=== PATIENT | female | born 1950 | race Caucasian/White ===

== ENCOUNTER 2016-04-04 05:42 | Day surgery (SDC) | payer MEDICARE, OTHER ==
[2016-04-03 11:28] VITALS: Ht 157.5 cm; Wt 86.0 kg
--- NOTE | 2016-04-03 13:28 | PREOPHP ---
DATE OF ADMISSION: 11/02/2015 HISTORY OF PRESENT ILLNESS: This 65-year-old patient is admitted for elective cataract surgery of t he left eye. The patient has had decreased vision for the past 6 10 months, and 6 months ago underw ent cataract surgery of the right eye with good visual result. The patient is currently being admit flynn for cataract surgery of the left eye. The patient has a history of insulin-dependent diabetes m ellitus for the past 22 years, hypercholesterolemia, and rheumatoid arthritis. CURRENT MEDICATIONS: 1. Gabapentin. 2. Methotrexate. 3. NovoLog insulin. 4. Atorvastatin. 5. Ranitidine. ALLERGIES: THERE ARE NO KNOWN ALLERGIES. PHYSICAL EXAMINATION: The visual acuity best corrected is 20/30 in the right eye and 20/50 in the l eft eye. Slit lamp examination reveals a nuclear sclerotic cataract in the left eye. Applanation t onometry is 15 mmHg. Examination of the retina appears within normal limits, without evidence of di abetic retinopathy. DIAGNOSIS: Cataract, left eye. PLAN: Cataract extraction with lens implant, left eye. The risks and alternatives to the surgery h ave been discussed with the patient, and patient has opted to proceed with surgery. Dictated By: MARLON CARDONA/SHANKAR Conf#: [id number] DID#: [id number]
[2016-04-04] VITALS (10 sets, daily range): BP systolic 112–134; BP diastolic 62–78; PULSE 87–94; RESP 14–20
[~2016-04-04] VITALS: Ht 157.5 cm; Wt 86.0 kg
[~2016-04-04 05:42] MED LIST: ACET1TAB40 PO; ATOR40TA68 PO; BENA40TA54 PO; BUPR150T6 PO; BUPR75TA9 PO; DOXY100T20 PO; FOLI-49 PO; GABA400C14 PO; LEVEM SC; METH2.5T21 PO; NEOM28OI TP; NOVO3I SC; PARO40TA79 PO; RANI300T PO; VITAMIN D PO; ZOLP10TA5 PO
[2016-04-04] MEDS ORDERED: BENA20TA48 PO (07:42)
[2016-04-04] MEDS ORDERED: NOVO3I SC (07:45)
[2016-04-04] MEDS ORDERED: DEXTROSE 50% 50 ML SYRINGE ONE (07:47)
[2016-04-04] MEDS ORDERED: CHOL100062 PO (07:48)
[2016-04-04] MEDS ORDERED: TOCI400V IV (07:48)
[2016-04-04] MEDS ORDERED: MULT-853 PO (07:49)
[2016-04-04] MEDS ORDERED: PANT40TA4 PO (07:49)
[2016-04-04] MEDS ORDERED: INSU100I31 SQ (07:51)
[2016-04-04] MEDS ORDERED: DEXTROSE 50% 50 ML SYRINGE IV PRN (08:00)
[2016-04-04] MEDS ORDERED: CIPROFLOXACIN 0.3% 2.5 ML OPH OPER SCH (08:00)
[2016-04-04] MEDS ORDERED: CYCLOPENTOLATE/PHENYLEPH 2 ML OPH OPER SCH (08:00)
[2016-04-04] MEDS ORDERED: DEXTROSE 50% 50 ML SYRINGE IV ONE (08:00)
[2016-04-04] MEDS ORDERED: DICLOFENAC 0.1% 2.5 ML OPH OPER SCH (08:00)
[2016-04-04] MEDS ORDERED: TROPICAMIDE 1% 2 ML OPH OPER SCH (08:00)
[2016-04-04] MEDS ORDERED: HYALURONATE/CHONDROITIN 1ML OPH INJ ONE (09:52)
[2016-04-04] MEDS ORDERED: CARBACHOL 0.01% 1.5 ML OPH INJ ONE (09:52)
[2016-04-04] MEDS ORDERED: LIDOCAINE 4% (MPF) 5 ML INJ ONE (09:52)
[2016-04-04] MEDS ORDERED: DEXAMETHASONE 4 MG/ML 1 ML INJ ONE (09:52)
[2016-04-04] MEDS ORDERED: PROPOFOL 20 ML ONE (09:56)
[2016-04-04] MEDS ORDERED: LABETALOL HCL 20MG INJ IV PRN (10:30)
[2016-04-04] MEDS ORDERED: MEPERIDINE 25 MG INJ IV PRN (10:30)
[2016-04-04] MEDS ORDERED: HYDROmorphONE (0.2 MG/ML) 10ML SYG IV PRN ×3 (10:30)
[2016-04-04] MEDS ORDERED: ONDANSETRON 4 MG INJ IV PRN (10:30)
[2016-04-04] MEDS ORDERED: hydrALAzine 20 MG INJ IV PRN (10:30)
[2016-04-04] MEDS ORDERED: FENTAnyl 50 MCG/ML VIAL IV PRN ×2 (10:30)
[2016-04-04] MEDS ORDERED: CEFAZOLIN 1 GM INJ INJ ONE (11:10)
--- NOTE | 2016-04-04 11:43 | OPR ---
DATE OF OPERATION: 04/04/2016 PREOPERATIVE DIAGNOSIS: Cataract, left eye. POSTOPERATIVE DIAGNOSIS: Cataract, left eye. OPERATION PERFORMED: Cataract extraction with lens implant, left eye. SURGEON: Marlon Ruelas MD ANESTHESIA: Delbert Baker MD OPERATION: Phacoemulsification with posterior chamber intraocular lens implant, left eye. PROCEDURE: The patient was brought to the operating room and placed on the table with an IV in plac e and the patient attached to an monitor worker. Oxygen was given via face mask. After some intravenous sedation was administered, local anesthesia was given using Xylocaine 2% with epinephrine, mixed with Marcaine 0.5%. This was given in a lid block and retrobulbar injection. The patient was then prepped and draped in the usual sterile manner. A wire lid speculum was inserted between the lids of the left eye. A Superblade was used to enter th e anterior chamber at the corneoscleral limbus at the 10:30 o'clock position. A separate incision wa s made using a 3.0-mm keratome which entered the corneoscleral junction at the 12 o'clock position. Through this 3-mm opening, an irrigating cystitome was introduced into the anterior chamber. The donavan mber was filled with Viscoat and an anterior capsulotomy was performed. Balanced salt solution was t hen used for hydrodissection of the lens. A phacoemulsification handpiece was then brought into the field and introduced into the anterior chamber. The lens nucleus was emulsified using a deep groove and cracking the nucleus into quadrants. Following this, each quadrant was aspirated and emulsified at the pupillary margin. After this was completed, the irrigation/aspiration handpiece was brought to the field, introduced i nto the posterior chamber, and the lens cortical material was removed. When this was completed, cathy tional Viscoat was injected into the anterior and posterior chambers. The 3-mm opening had its internal lips enlarged, and then the posterior chamber intraocular lens italo suring 20.0 diopters ([employer], Model LI61AO) was then injected into the posterio r chamber using the lens injector system. After the leading haptic was introduced into the capsular bag and the lens optic was present in the center of the eye, the injector was removed and the traili ng haptic was grasped with non-toothed forceps and introduced into the capsular fold superiorly. A S inskey hook was then used to rotate the intraocular lens so that the lips were oriented in the horiz ontal meridian. One 10-0 nylon suture was placed across the wound. Prior to tying, the irrigation/aspiration handpiece was reintroduced into the anterior chamber to re move the Viscoat. Miochol was instilled to constrict the pupil, and then the 10-0 nylon suture was t ied. The ends were cut short and then the knot was buried. Then, 0.5 mL of dexamethasone and 0.5 mL of Ancef were injected into the sub-Tenon space in the infe rior fornix. Ciloxan drops were then placed on the surface of the eye. The speculum was removed and a patch was applied. The patient then left the operating room in satisfactory condition. Dictated By: MARLON CARDONA/SHANKAR Conf#: [id number] DID#: [id number]
== END 2016-04-04 11:49 | disposition home or self-care (01) ==
LOC: SDS 05:42
PROVIDERS: ATTEND Ophthalmology
DX: H25.12 Age-related nuclear cataract, left eye (principal); I10 Essential (primary) hypertension; E11.9 Type 2 diabetes mellitus without complications; E78.5 Hyperlipidemia, unspecified
CPT/HCPCS: 66984; 82962; J0690; J1100; V2632

== ENCOUNTER → 2016-07-19 | Outpatient (CLI) | payer MEDICARE, OTHER ==
[~2016-07-19] MED LIST changes: -ACET1TAB40 PO; +APRACLONIDINE 1% 0.1 ML OPH ONE; +BENA20TA48 PO; -BENA40TA54 PO; -BUPR150T6 PO; +CHOL100062 PO; -DOXY100T20 PO; +INSU100I31 SQ; -LEVEM SC; +MULT-853 PO; -NEOM28OI TP; +OPHTHALMIC IRRIG SOLUTION 120 ML ONE; +PANT40TA4 PO; +PHENYLephrine 10% 5 ML OPH ONE; +PROPARACAINE 0.5% 15 ML OPH ONE; -RANI300T PO; +TOCI400V IV; +TROPICAMIDE 1% 3 ML OPH ONE; -VITAMIN D PO
== END | disposition home or self-care (01) ==
LOC: RAD 08:50
PROVIDERS: ATTEND Ophthalmology
DX: H26.492 Other secondary cataract, left eye (principal)
CPT/HCPCS: 66821

== ENCOUNTER → 2017-01-09 | Outpatient (CLI) | payer MEDICARE, OTHER ==
[~2017-01-09] MED LIST changes: -APRACLONIDINE 1% 0.1 ML OPH ONE; -OPHTHALMIC IRRIG SOLUTION 120 ML ONE; -PHENYLephrine 10% 5 ML OPH ONE; -PROPARACAINE 0.5% 15 ML OPH ONE; -TROPICAMIDE 1% 3 ML OPH ONE
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
--- NOTE | 2017-01-10 13:03 | RADRPT ---
PROCEDURE: Right knee radiographs. CLINICAL INDICATION: Right knee pain. TECHNIQUE: Three views. Weight bearing. Frontal, lateral, and patellar view. COMPARISON: No prior studies are available for comparison. FINDINGS: There is no fracture or dislocation. The soft tissues are normal. There are degenerative changes with osteophytes arising from all 3 joint compartment margins. There is medial and patellofemoral joint compartment narrowing. There is deformity of the patellofemoral j oint compartment. There is no lytic or blastic lesion. There is no radiopaque foreign body. IMPRESSION: 1. Moderate to severe degenerative changes of the right knee. 2. No acute abnormality. RPTAT: QQ .Laron Buchanan MD, MD Date Time Electronically viewed and signed by .Laron Buchanan MD, on 01/10/2017 13:03 .R/
== END | disposition home or self-care (01) ==
LOC: HKI 10:13
DX: M06.861 Other specified rheumatoid arthritis, right knee (principal); M17.11 Unilateral primary osteoarthritis, right knee; E11.9 Type 2 diabetes mellitus without complications; Z79.4 Long term (current) use of insulin; Z96.652 Presence of left artificial knee joint; I83.90 Asymptomatic varicose veins of unspecified lower extremity; Z87.11 Personal history of peptic ulcer disease
CPT/HCPCS: 20610; 73562; G0463

== ENCOUNTER → 2018-03-21 | Outpatient (CLI) | END | disposition home or self-care (01) ==

== ENCOUNTER → 2018-04-08 | Outpatient (CLI) | payer MEDICARE, OTHER ==
[~2018-04-08] MED LIST changes: +BENA20TA4 PO; -BENA20TA48 PO
--- NOTE | 2018-04-08 18:11 | CONS ---
Date/Time of Note Date/Time of Note DATE: 04/08/18 TIME: 18:01 Consult Date/Type/Reason Admit Date/Time Initial Consult Date Subjective This is a 67-year-old female who follows up today regarding her right knee. Last visit surgical treatment with a right total knee arthroplasty was discussed at length. The patient wanted to proceed with surgery at that time. Given her medical history of rheumatoid arthritis as well as type 1 diabetes I wanted to talk with the patient's powerhouse helper Dr. Pinedo and obtain labs from the patient's PCP Dr. Villagran. The patient is currently being transitioned onto a new medication, Infliximab, for her rheumatoid arthritis. Her infusion schedule will be stable in May. Patient denies any changes in her symptoms. The pain is significant and limits her daily life. She does not want to continue nonoperative treatment. Objective Weight: 90 pound Height: 5 foot 2 inches Temperature: 98.4 Heart Rate: 101 Blood Pressure: 129/73 Respiratory Rate: 12 Exam General: Alert, oriented x3. No Acute Distress. Heart: Regular rate and rhythm. Lungs: No respiratory distress. No accessory muscle use. Musculoskeletal: Right Knee This is a well developed obese female who is alert, oriented times three and in no apparent distress. Skin is intact over the right knee as well as the lower extremity with no abrasions, lacerations, or ulcerations. There is significant redundant soft tissue over the knee. Observation of the patient's gait reveals an antalgic gait with Varus thrust. Frontal plane alignment is varus. There is pain on palpation of medial joint line. The patient demonstrates grinding anteriorly with ROM. Range of motion: 5 extension to approximately 120 degrees of flexion. Collateral ligament testing reveals no instability with varus or valgus stress at 0 and 30 degrees of flexion. Negative Loyda's and negative posterior drawer. Neurovascularly intact with 5/5 EHL/tibialis anterior/gastroc. Sensation intact to light touch in a sural, saphenous, deep peroneal, superficial peroneal, medial and lateral plantar nerve distribution. Palpable, symmetric dorsalis pedis and posterior tibial pulses in both lower extremities. Hip examination normal. Results/Medications Results [address] Pinedo 04/02/18 WBC: 6.1 Hemoglobin: 12.3 ESR: 33 (0-20) CRP: 0.25 (0-1.10) Labs from Dr. Villagran 04/01/18 HgbA1c: 9.3 Total protein: 7.0 Abdomen: 4.0 Assessment/Plan Chief Complaint/Hosp Course This is a 67-year-old female with end-stage rheumatoid arthritis to her right knee. She has failed conservative treatment. Her preoperative workup revealed that her HgbA1c is significantly elevated at 9.3. Per the patient she does have hypoglycemic episodes. Ideally her HgbA1c would be below 7.0. I will talk with Dr. Villagran. If her hemoglobin A1c could not be lowered secondary to hypoglycemic episodes then we may proceed with surgery with the patient understanding her increased risk for perioperative complications including infection. In addition secondary to her being transitioned onto a new antirheumatic medication at the very least she would have to wait until mid May when her infusion schedule regular and we can appropriately schedule her surgery. In addition I would like to order a vitamin D level for her. NAIMA SARGENT MD Apr 08, 2018 18:11
== END | disposition home or self-care (01) ==
LOC: HKI 12:57
PROVIDERS: ATTEND Orthopaedic Surgery Adult Reconstructive Orthopaedic Surgery
DX: M17.11 Unilateral primary osteoarthritis, right knee (principal)

== ENCOUNTER 2018-05-17 14:06 | Emergency (ER) | payer MEDICARE, OTHER ==
[~2018-05-17] VITALS: Ht 152.4 cm; Wt 90.8 kg
[2018-05-17 14:10] VITALS: BP 149/78; PULSE 109; RESP 22; Ht 152.4 cm; Wt 90.8 kg
== END 2018-05-17 16:26 | disposition left against medical advice (07) ==
LOC: FTE 14:06
DX: Z53.21 Procedure and treatment not carried out due to patient leaving prior to being seen by health care provider (principal)

== ENCOUNTER 2018-11-29 10:40 | Emergency (ER) | payer MEDICARE, OTHER ==
[~2018-11-29] VITALS: Ht 165.1 cm; Wt 90.9 kg
[~2018-11-29 10:40] MED LIST changes: +CEPH-443 PO; +CHOL200056 PO; +CYAN-23 PO; +DULO30CA47 PO; +EMPA25TA PO; +FOLI0.4T2 PO; +INSU200I4 SQ; +LIRA0.6P2 SQ; +MEMA10TA PO; +MET25 PO; +METF500T24 PO; +PREG150C PO; +RANI300T PO; +SPIR25TA PO; +TOPI50TA13 PO
[2018-11-29 11:07] VITALS: Ht 165.1 cm; Wt 90.9 kg
[2018-11-29] MEDS ORDERED: SOD CHLORIDE 0.9% 500 ML IV STA (11:38)
[2018-11-29] MEDS ORDERED: SOD CHLORIDE 0.9% 500 ML IV ONE (14:30)
[2018-11-29] MEDS ORDERED: CEFTRIAXONE 1 GM/50 ML (PMX) 50 ML IVPB ONE (14:30)
[2018-11-29 15:31] VITALS: BP 125/73; PULSE 70; RESP 16
== END 2018-11-29 15:54 | disposition home or self-care (01) ==
LOC: E/R 10:40
DX: N30.00 Acute cystitis without hematuria (principal); R41.82 Altered mental status, unspecified; I12.9 Hypertensive chronic kidney disease with stage 1 through stage 4 chronic kidney disease, or unspecified chronic kidney disease; N18.9 Chronic kidney disease, unspecified; E10.22 Type 1 diabetes mellitus with diabetic chronic kidney disease; Z86.59 Personal history of other mental and behavioral disorders; Z79.4 Long term (current) use of insulin
CPT/HCPCS: 36415; 70450; 71045; 80053; 80307; 81001; 82140; 82962; 83605; 84436; 84479; 85025; 93005; 96361; 96365; 99285; J0696; J7040